=== PATIENT | female | born 1980 | race Caucasian/White ===

== ENCOUNTER 2017-09-25 17:03 | Emergency (ER) | payer BC ==
[2017-09-25 18:13] VITALS: BP 128/83
--- NOTE | 2017-09-25 18:50 | UC ---
Skin Complaint HPI - HPI Summary HPI Summary: C/O cramping pain bilaterally under the anterior ribs. Also c/o fullness from the upper outer right breast up into the axilla. Still breast feeding - History of Current Complaint Chief Complaint: UCSkin Time Seen by Provider: 09/25/17 18:30 Stated Complaint: SKIN COMPLAINT/BRIONNA RIB AREA PAIN *2MONTHS Hx Last Menstrual Period: 09/06/17 ?: No Onset/Duration: Gradual Onset, Lasting Weeks, Still Present Timing: Constant - right axilla, upper breast fullness/ tenderness. Onset Severity: Mild Current Severity: Mild Pain Intensity: 0 Location: Discrete - Right axilla fullness Aggravating Factor(s): Touch Alleviating Factor(s): Nothing Associated Signs & Symptoms: Negative: Diaphoresis, Weakness, Shivering, Fever, Chills, Rash, Drainage - Allergy/Home Medications Allergies/Adverse Reactions: Allergies Allergy/AdvReac Type Severity Reaction Status Date / Time No Known Allergies Allergy Verified 09/25/17 18:14 Home Medications: Home Medications L.acidoph,Paracasei, B.lactis [Probiotic] 1 each PO DAILY 09/25/17 [History Confirmed 09/25/17] Multivitamin [Daily Multiple Vitamin] 1 each PO DAILY 09/25/17 [History Confirmed 09/25/17] Review of Systems Skin: Other - Fullness under the skin in the right upper outer breast Cardiovascular: Chest Pain Is Patient Immunocompromised?: No All Other Systems Reviewed And Are Negative: Yes PMH/Surg Hx/FS Hx/Imm Hx Previously Healthy: Yes - Surgical History Surgical History: None - Family History Known Family History: Positive: Diabetes - Social History 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 Lives: With Family Alcohol Use: None Substance Use Type: None Smoking Status (MU): Former Smoker When Did the Patient Quit Smoking/Using Tobacco: 2004 Physical Exam Triage Information Reviewed: Yes Appearance: Well-Appearing, No Pain Distress, Well-Nourished Vital Signs: Initial Vital Signs Temp 100.5 F 09/25/17 18:00 Pulse 97 09/25/17 18:00 Resp 18 09/25/17 18:00 BP 128/83 09/25/17 18:00 Pulse Ox 100 09/25/17 18:00 Vital Signs Reviewed: Yes Eyes: Positive: Conjunctiva Clear Neck exam: Normal Respiratory: Positive: Chest non-tender, Lungs clear Cardiovascular Exam: Normal Abdominal Exam: Normal Bowel Sounds: Positive: Present Musculoskeletal Exam: Normal Neurological Exam: Normal Psychological Exam: Normal Skin: Positive: Other - Tender fullness tail of the right breast up into the axilla. Course/Dx - Differential Diagnoses - Skin Complaint Differential Diagnoses: Abscess, Cellulitis, Systemic Illness - Diagnoses Provider Diagnoses: Mastitis right breast. Muscle cramp/ spasm Discharge - Sign-Out/Discharge Documenting (check all that apply): Discharge/Admit/Transfer - Discharge Plan Condition: Stable Disposition: HOME Prescriptions: Cephalexin CAP* [Keflex 500 CAP*] 500 mg PO QID #28 cap Patient Education Materials: Mastitis (ED), Cephalexin (By mouth), Muscle Cramp (ED) Referrals: Holly Elliott MD [Primary Care Provider] - Additional Instructions: 1. Hydration 2. Vitamin D3 5000iu 3 once a week (=2000 iu a day) 3. Magnesium 400 or 500mg once or twice a day 4. Calcium 1000-1200mg a day ( 2 servings of dairy) - Billing Disposition and Condition Condition: STABLE Disposition: Home
[2017-09-25] MEDS ORDERED: Cephalexin CAP* 500 MG PO ONE (18:59)
== END 2017-09-25 19:18 | disposition home or self-care (01) ==
LOC: UCCORT 17:03
DX: N61.0 Mastitis without abscess (principal); R25.2 Cramp and spasm; Z87.891 Personal history of nicotine dependence
CPT/HCPCS: 99212; A9270-GY; G0463